=== PATIENT | female | born 1975 | race Caucasian/White ===

== ENCOUNTER 2016-12-14 18:27 | Emergency (ER) | payer MEDICAID | END 2016-12-14 20:42 | disposition home or self-care (01) | LOC: D.ER 18:27 | DX: S16.1XXA Strain of muscle, fascia and tendon at neck level, initial encounter (principal); X58.XXXA Exposure to other specified factors, initial encounter; Y93.89 Activity, other specified; Y92.89 Other specified places as the place of occurrence of the external cause; S29.012A Strain of muscle and tendon of back wall of thorax, initial encounter; S50.01XA Contusion of right elbow, initial encounter; S93.402A Sprain of unspecified ligament of left ankle, initial encounter; R51 Headache; F17.200 Nicotine dependence, unspecified, uncomplicated ==

== ENCOUNTER 2018-05-19 05:00 | Day surgery (SDC) | payer MEDICAID ==
[2018-05-18 16:10] LABS: BASOPHILS 0.3 % (0-2); EOSINOPHILS 1.9 % (0-7); HEMATOCRIT 36.8 % (36.0-48.0); HEMOGLOBIN 12.1 g/dL (12-16); IMMATURE GRANULOCYTES 0.2 % (0-5); LYMPHOCYTES 36.7 % (15-50); MCH 29.8 pg (26.0-34.0); MCHC 32.9 g/dL (31.0-37.0); MCV 90.6 fL (80.0-100.0); MEAN PLATELET VOLUME 10.5 fL (7.4-10.4); MONOCYTES 5.4 % (2-11); NEUTROPHILS 55.5 % (40-80); PLATELET COUNT 265 10x3/uL (130-400); RBC 4.06 10x6/uL (4.00-5.40); RDW 14.1 % (11.5-14.5); WBC 5.8 10x3/uL (4.8-10.8)
[2018-05-18 16:23] LABS: ANION GAP 12.7 mmol/L (8-16); CALCIUM 8.4 mg/dL (8.5-10.1); POTASSIUM - SERUM 3.7 mmol/L (3.5-5.1)
[~2018-05-19] VITALS: Ht 172.7 cm; Wt 86.4 kg
[~2018-05-19 05:00] MED LIST: CYMBALTA20 MG PO; ELAVIL25 MG PO; FLAGYL500 MG PO; LYRICA100 MG PO; NORCO 10-325 TA1 TAB PO
[2018-05-19] MEDS ORDERED: CYCLOBENZAPRINE10 MG PO (06:16)
[2018-05-19 06:27] VITALS: BP 145/94; Ht 172.7 cm; Wt 86.4 kg
[2018-05-19 06:38] LABS: HCG URINE NEGATIVE (NEGATIVE)
--- NOTE | 2018-05-19 11:50 | NUR ---
DEIRDRE ESCALONA SERVED. C/O PAIN 09/10. [id number] PO ADMINISTERED PER ORDERS. FRIEND/FAMILY AT BEDSIDE.
--- NOTE | 2018-05-19 12:30 | NUR ---
PT ABLE TO PASS 300ML OF BLOOD URINE THROUGH CATHETER AT THIS TIME. LEG BAG PLACED AT THIS TIME.
--- NOTE | 2018-05-19 13:15 | NUR ---
PT DISCHARGE INSTRUCTIONS REVIEWED AT THIS TIME, INTACT, NO REDNESS NOTED AT SITE. PT VERBALIZED UNDERSTANDG OF DISCHARGE INSTRUCTIONS.
--- NOTE | 2018-05-19 13:27 | NUR ---
PT LEAVUING UNIT AT THIS TIME VIA WC.
== END 2018-05-19 13:27 | disposition home or self-care (01) ==
LOC: D.OPS 05:00 → D.PAN 07:30 → D.OPS 07:30
PROVIDERS: Anesthesiology; Obstetrics & Gynecology
DX: D25.0 Submucous leiomyoma of uterus (principal); D06.9 Carcinoma in situ of cervix, unspecified; Z01.812 Encounter for preprocedural laboratory examination

== ENCOUNTER 2019-05-16 22:39 | Emergency (ER) | payer MEDICAID ==
[~2019-05-16] VITALS: Ht 172.7 cm; Wt 63.6 kg
[~2019-05-16 22:39] MED LIST changes: +CYCLOBENZAPRINE10 MG PO
[2019-05-16 22:51] VITALS: Ht 172.7 cm; Wt 63.6 kg
[2019-05-16] MEDS ORDERED: SEROQUEL100 MG PO (22:53)
[2019-05-16] MEDS ORDERED: AMOXICILLIN500 M1 PO (23:28)
[2019-05-16] MEDS ORDERED: MEDROL DOSE PACK4 MG PO (23:28)
[2019-05-16] MEDS ORDERED: MUCINEX DM ER1 EAC1 PO (23:28)
[2019-05-17 00:05] VITALS: BP 172/92
== END 2019-05-17 00:01 | disposition home or self-care (01) ==
LOC: D.ER 22:39
DX: H66.93 Otitis media, unspecified, bilateral (principal); J06.9 Acute upper respiratory infection, unspecified; I10 Essential (primary) hypertension; J45.909 Unspecified asthma, uncomplicated; Z86.73 Personal history of transient ischemic attack (TIA), and cerebral infarction without residual deficits; Z72.0 Tobacco use

== ENCOUNTER 2019-10-26 17:09 | Emergency (ER) | payer MEDICAID ==
[~2019-10-26] VITALS: Ht 172.7 cm; Wt 79.5 kg
[~2019-10-26 17:09] MED LIST changes: +AMOXICILLIN500 M1 PO; +MEDROL DOSE PACK4 MG PO; +MUCINEX DM ER1 EAC1 PO; +SEROQUEL100 MG PO
[2019-10-26 17:23] VITALS: Ht 172.7 cm; Wt 79.5 kg
[2019-10-26 18:23] LABS: BASOPHILS 0.4 % (0-2); EOSINOPHILS 2.1 % (0-7); HEMATOCRIT 34.6 % (36.0-48.0); HEMOGLOBIN 11.5 g/dL (12-16); IMMATURE GRANULOCYTES 0.2 % (0-5); MCH 29.7 pg (26.0-34.0); MCHC 33.2 g/dL (31.0-37.0); MCV 89.4 fL (80.0-100.0); MEAN PLATELET VOLUME 10.6 fL (7.4-10.4); MONOCYTES 5.9 % (2-11); NEUTROPHILS 58.4 % (40-80); PLATELET COUNT 217 10x3/uL (130-400); RBC 3.87 10x6/uL (4.00-5.40); RDW 14.2 % (11.5-14.5); WBC 5.6 10x3/uL (4.8-10.8)
[2019-10-26 18:28] LABS: APTT 50.3 SECONDS (22.8-39.4); INR 1.34 (0.85-1.17); PROTIME 16.5 SECONDS (11.6-15.0)
[2019-10-26 18:30] LABS: CALC OSMOLALITY 277 mosm/kg (275-300); CALCIUM 8.5 mg/dL (8.5-10.1); CARBON DIOXIDE 29.9 mmol/L (21.0-32.0); CHLORIDE - SERUM 104 mmol/L (98-107); CREATININE - SERUM 1.4 mg/dL (0.6-1.3); GLUCOSE 98 mg/dL (74-106); POTASSIUM - SERUM 4.3 mmol/L (3.5-5.1); SODIUM 137 mmol/L (136-145); UREA NITROGEN 24 mg/dL (7-18); eGFR NON AFRICAN AMERICAN 43 mL/min (90-120)
[2019-10-26 18:47] LABS: ALBUMIN 3.6 g/dL (3.4-5.0); ALKALINE PHOSPHATASE 94 U/L (30-120); ALT (SGPT) 16 U/L (10-68); BILIRUBIN - TOTAL 0.37 mg/dL (0.2-1.3); CKMB 0.8 U/L (0.0-3.6); CREATINE KINASE 69 UL (21-215); PROTEIN - SERUM 6.7 g/dL (6.4-8.2)
[2019-10-26 18:50] LABS: TROPONIN-I < 0.017 ng/mL (0.000-0.060)
[2019-10-26] MEDS ORDERED: PEPCID40 MG PO (22:28)
[2019-10-26] MEDS ORDERED: COZAAR25 MG PO (22:28)
[2019-10-26 22:34] VITALS: BP 159/81
== END 2019-10-26 22:34 | disposition home or self-care (01) ==
LOC: D.ER 17:09
PROVIDERS: Family Medicine
DX: I10 Essential (primary) hypertension (principal); R10.13 Epigastric pain; Z86.73 Personal history of transient ischemic attack (TIA), and cerebral infarction without residual deficits; J45.909 Unspecified asthma, uncomplicated; Z72.0 Tobacco use; R07.9 Chest pain, unspecified